=== PATIENT | male | born 1985 | race Two or more races ===

== ENCOUNTER 2023-06-09 23:07 | Emergency (ER) | payer SELFPAY ==
[~2023-06-09] VITALS: Ht 165.1 cm; Wt 75.1 kg
[2023-06-10] MEDS ORDERED: LORazepam 2MG/ML-1ML VIAL IV ONE
[2023-06-10] MEDS ORDERED: SODIUM CHLORIDE 0.9% 1,000 ML IV ONE
[2023-06-10 01:01] LABS: Basophils # (auto) 0 10 ^3/uL (0-0.2); Basophils % (auto) 0.4 % (0.0-2.0); Eosinophils # (auto) 0 10 ^3/uL (0-0.8); Hemoglobin 15.9 g/dL (13.5-17.5); Lymphocytes # (auto) 1.6 10 ^3/uL (0.4-5.4); Mean Corpuscular Hemoglobin 31.9 pg (28.0-32.0); Monocytes # (auto) 0.7 10 ^3/uL (0-1.3); Neutrophils # (auto) 4.6 10 ^3/uL (1.6-8.6); Neutrophils % (auto) 66.3 % (37.0-80.0); Red Blood Cells 4.99 10^6/uL (4.5-5.90); White Blood Cell 6.9 10^3/uL (4.4-10.8)
[2023-06-10 01:03] LABS: Eosinophils % (auto) 0.4 % (0.0-7.0); Hematocrit 46.4 % (41.0-53.0); Lymphocytes % (auto) 22.9 % (10.0-50.0); Mean Corpuscular Hgb Conc. 34.3 g/dL (32.0-36.0); Mean Corpuscular Volume 93.1 fL (80.0-100.0); Nucleated Red Blood Cells % 0.4 %; Red Cell Distribution Width 15.1 % (11.8-14.3)
[2023-06-10 01:06] LABS: Alanine Aminotransferase 80 U/L (7-40); Albumin 4.3 g/dL (3.2-4.8); Alkaline Phosphatase 155 U/L (46-116); Anion Gap 6.9 (5-15); Aspartate Aminotransferase 107 U/L (13-40); BUN/Creatinine Ratio 8.1 (10.0-20.0); Bilirubin, Total 2.1 mg/dL (0.2-1.0); Blood Alcohol < 3.0 mg/dL (<10); Blood Urea Nitrogen 5 mg/dL (9-23); Calcium 9.4 mg/dL (8.7-10.4); Carbon Dioxide 25.1 mmol/L (20-30); Chloride 106 mmol/L (98-107); Glucose 129 mg/dL (74-106); Sodium 138 mmol/L (136-145)
[2023-06-10 04:58] VITALS: BP 123/88; PULSE 83; RESP 19; TEMP 98.4; O2SAT 97
[2023-06-10] MEDS ORDERED: LACTATED RINGER'S 1,000 ML IV ONE (05:30)
[2023-06-10] MEDS ORDERED: MIDAZOLAM HCL 5 MG/ML-1ML VIAL IV ONE (05:30)
[2023-06-10] MEDS ORDERED: FOLIC ACID 1 MG, MULTIPLE VITAMIN 10 ML, MAGNESIUM SULF SDV 50% 8 MEQ, THIAMINE INJ 100... INJ SCH ×5 (12:00)
== END 2023-06-10 05:43 | disposition left against medical advice (07) ==
LOC: ER 23:07
DX: F10.939 Alcohol use, unspecified with withdrawal, unspecified (principal); Y90.9 Presence of alcohol in blood, level not specified; Z53.29 Procedure and treatment not carried out because of patient's decision for other reasons
CPT/HCPCS: 36415; 80053; 80320; 85025; 96361; 96374; 99283; J2060; J7030